=== PATIENT | female | born 1980 | race Caucasian/White ===

== ENCOUNTER 2025-06-06 14:41 | Outpatient (CLI) | payer OTHER, SELFPAY ==
--- NOTE | ~2025-06-06 | MR_ITS ---
EXAMINATION: MRI left femur with and without contrast: DATE: 06/07/2025. INDICATION: 45-year-old female with left thigh pain after the knee. Hamstring pain. 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 No history of surgery. TECHNIQUE: Axial coronal and sagittal images of the left femur from the hip to distal shaft of the femur above the knee. Postcontrast series after 14 mL MultiHance IV. COMPARISON: None available FINDINGS: No acute bony lesions of the proximal and mid left femur. No definite focal lesions of distal left femur up to the knee although the knee area is not completely included in the field. No abnormal enhancement on the postcontrast study. Vascular structures are normal. There is evidence of significant, partial-thickness tear and inflammation of the conjoined tendon at the left ischium with inflammatory changes. The changes are near full-thickness in nature. No soft tissue mass or enhancement is seen in this area. IMPRESSION: 1. No acute or focal bone changes of the left femur. No abnormal enhancement of the femur. Distal end of the femur is incompletely included in the field. 2. No evidence of near full-thickness tear and tendinopathy of the conjoined tendon near the insertion into the left ischium as described above in detail. 3. No soft tissue masses. No vascular abnormalities of the thyroid. Reviewed, dictated and finalized at location T. T CALCULATOR IMPRESSION: 1. No acute or focal bone changes of the left femur. No abnormal enhancement of the femur. Distal end of the femur is incompletely included in the field. 2. No evidence of near full-thickness tear and tendinopathy of the conjoined te ndon near the insertion into the left ischium as described above in detail. 3. No soft tissue masses. No vascular abnormalities of the thyroid.
== END 2025-06-06 14:42 | disposition home or self-care (01) ==
LOC: MICIMG 14:42
DX: S76.312A Strain of muscle, fascia and tendon of the posterior muscle group at thigh level, left thigh, initial encounter (principal); X58.XXXA Exposure to other specified factors, initial encounter
CPT/HCPCS: 73720; A9577